=== PATIENT | female | born 1970 | race Caucasian/White ===

== ENCOUNTER 2022-03-05 13:33 | Inpatient (IN) | payer MEDICAID ==
[~2022-03-05] VITALS: Ht 157.5 cm; Wt 66.7 kg
[2022-03-05] MEDS ORDERED: EPINEPHrine 1:1,000 [1 MG/ML] VIAL IM ONE (13:45)
[2022-03-05] MEDS ORDERED: DEXAMETHASONE SOD PHOS 4 MG/ML 5 ML VIAL IVP ONE (13:45)
[2022-03-05] MEDS ORDERED: ALBUTEROL SULFATE 2.5 MG/0.5 ML NEB SOLUTION NEB ONE (14:00)
[2022-03-05] MEDS ORDERED: CITA-107 PO (14:09)
[2022-03-05] MEDS ORDERED: ALBU8HFA IH (14:09)
[2022-03-05] MEDS ORDERED: SIMV10TA97 PO (14:09)
[2022-03-05] MEDS ORDERED: CYCL-397 PO (14:09)
[2022-03-05] MEDS ORDERED: LORA10TA7 PO (14:09)
[2022-03-05] MEDS ORDERED: CHOL400C8 PO (14:09)
[2022-03-05] MEDS ORDERED: CLON-592 PO (14:09)
[2022-03-05] MEDS ORDERED: FAMOTIDINE 10 MG/ML 2 ML VIAL IVP ONE (14:15)
[2022-03-05 14:21] LABS: BASOPHILS % (AUTO) 0.4 % (0.0-2.0); HEMATOCRIT 48.2 % (36-46); HEMOGLOBIN 15.9 g/dL (12.0-16.0); LYMPHOCYTES # (AUTO) 7.2 K/uL (1.0-4.8); LYMPHOCYTES % (AUTO) 32.3 % (22.0-44.0); MEAN CORPUSCULAR HGB CONC 32.9 G/dL (31.0-37.0); MEAN CORPUSCULAR VOLUME 82 fL (80-100); MONOCYTES # (AUTO) 1.8 K/uL (0.1-1.0); MONOCYTES % (AUTO) 8.1 % (2.0-9.0); NEUTROPHILS % (AUTO) 58.2 % (40.0-70.0); PLATELET COUNT (AUTO) 304 K/uL (150-450); RED BLOOD CELL COUNT(AUTO) 5.88 MIL/uL (4.00-5.20); RED CELL DISTRIBUTION WIDTH 13.6 % (11.5-14.5)
[2022-03-05 14:38] LABS: PROTHROMBIN TIME 10.3 SEC (9.4-11.6)
[2022-03-05 14:51] LABS: ANION GAP 11 mmol/L (8-16); CALCIUM, TOTAL 11.5 mg/dL (8.8-10.5); CARBON DIOXIDE 28 mmol/L (22-29); CHLORIDE 101 mmol/L (98-107); CREATININE 0.65 mg/dL (0.60-1.30); GLUCOSE,RANDOM 155 mg/dL (70-110); POTASSIUM 3.3 mmol/L (3.5-5.1); SODIUM SERUM 140 mmol/L (136-145); UREA NITROGEN, BLOOD 8 mg/dL (7-18)
[2022-03-05 14:52] LABS: GLOMERULAR FILTR. RATE CALC > 60 mL/min (>60)
[2022-03-05 14:58] LABS: ALANINE AMINOTRANSFERASE 106 U/L (12-78); ALBUMIN 4.3 g/dL (3.4-5.0); ALKALINE PHOSPHATASE 115 U/L (46-116); ASPARTATE AMINOTRANSFERASE 61 U/L (15-37); BILIRUBIN,TOTAL 0.6 mg/dL (0.1-1.0); CREATINE KINASE, TOTAL ONLY 33 U/L (26-192); TOTAL PROTEIN, SERUM 7.7 g/dL (6.4-8.2)
[2022-03-05 15:05] LABS: B-TYPE NATRIURETIC PEPTIDE < 5 pg/mL (0-100)
[2022-03-05] MEDS ORDERED: ONDANSETRON HCL 4 MG/2 ML VIAL IVP PRN ×2 (16:00→16:15)
[2022-03-05] MEDS ORDERED: ACETAMINOPHEN 325 MG TABLET PO PRN ×2 (16:00→16:15)
[2022-03-05] MEDS ORDERED: 0.9% SODIUM CHLORIDE 10 ML SYRINGE IVP PRN (16:00)
[2022-03-05] MEDS ORDERED: MORPHINE SULFATE 2 MG/ML SYRINGE IVP PRN (16:15)
[2022-03-05] MEDS ORDERED: BISACODYL 10 MG RECTAL RECTAL SUPPOSITORY PR PRN (16:15)
[2022-03-05] MEDS ORDERED: MAGNESIUM HYDROXIDE SUSPENSION 30 ML UDCUP PO PRN (16:15)
[2022-03-05] MEDS ORDERED: ZOLPIDEM TARTRATE 5 MG TABLET PO PRN (16:15)
[2022-03-05] MEDS ORDERED: HYDROCODONE/ACETAMINOPHEN 5-325 MG TABLET PO PRN (16:15)
[2022-03-05 16:55] LABS: COVID AG,FIA SOURCE NASOPHARYNGEAL
[2022-03-05] MEDS ORDERED: BUTA1CAP49 PO (17:07)
[2022-03-05 21:13] VITALS: BP 128/86
[2022-03-05] MEDS: DiphenhydrAMINE HCL 50 MG/ML VIAL IVP SCH (21:36)
[2022-03-05] MEDS: DOCUSATE SODIUM 100 MG CAPSULE PO SCH (21:36)
[2022-03-05] MEDS: FAMOTIDINE 10 MG/ML 2 ML VIAL IVP SCH (23:39)
[2022-03-05] MEDS: MethylPREDNISolone SOD SUCC 125 MG/2 ML VIAL IVP SCH (23:39)
[2022-03-05] MEDS: HEPARIN SODIUM,PORCINE 5,000 UNITS/ML VIAL SQ SCH (23:40)
[2022-03-05 23:47] VITALS: BP 119/76
[2022-03-06 04:07] VITALS: BP 122/74
[2022-03-06 06:22] LABS: ALBUMIN 3.8 g/dL (3.4-5.0); ALKALINE PHOSPHATASE 98 U/L (46-116); ANION GAP 17 mmol/L (8-16); ASPARTATE AMINOTRANSFERASE 37 U/L (15-37); BILIRUBIN,TOTAL 0.6 mg/dL (0.1-1.0); CALCIUM, TOTAL 11.3 mg/dL (8.8-10.5); CARBON DIOXIDE 25 mmol/L (22-29); CHLORIDE 97 mmol/L (98-107); GLUCOSE,RANDOM 284 mg/dL (70-110); POTASSIUM 3.8 mmol/L (3.5-5.1); SODIUM SERUM 139 mmol/L (136-145); TOTAL PROTEIN, SERUM 7.4 g/dL (6.4-8.2); UREA NITROGEN, BLOOD 11 mg/dL (7-18)
[2022-03-06 06:34] LABS: ALANINE AMINOTRANSFERASE 91 U/L (12-78)
[2022-03-06 06:46] LABS: GLOMERULAR FILTR. RATE CALC > 60 mL/min (>60)
[2022-03-06 07:44] VITALS: BP 111/73
[2022-03-06] MEDS: PANTOPRAZOLE SODIUM 40 MG DR TABLET PO SCH (08:24)
[2022-03-06] MEDS: HEPARIN SODIUM,PORCINE 5,000 UNITS/ML VIAL SQ SCH ×2 (08:24→15:27)
[2022-03-06] MEDS: DiphenhydrAMINE HCL 50 MG/ML VIAL IVP SCH ×2 (08:25→20:31)
[2022-03-06] MEDS: FAMOTIDINE 10 MG/ML 2 ML VIAL IVP SCH ×2 (08:26→20:30)
[2022-03-06] MEDS: MethylPREDNISolone SOD SUCC 125 MG/2 ML VIAL IVP SCH ×2 (08:27→15:28)
[2022-03-06] MEDS: DOCUSATE SODIUM 100 MG CAPSULE PO SCH ×2 (08:28→20:29)
[2022-03-06 08:56] LABS: BASOPHILS % (AUTO) 0.2 % (0.0-2.0); EOSINOPHILS % (AUTO) 0 % (1.0-6.0); HEMATOCRIT 43.9 % (36-46); HEMOGLOBIN 14.8 g/dL (12.0-16.0); LYMPHOCYTES # (AUTO) 1.4 K/uL (1.0-4.8); LYMPHOCYTES % (AUTO) 15.4 % (22.0-44.0); MEAN CORPUSCULAR HEMOGLOBIN 27.8 pg (26.0-34.0); MEAN CORPUSCULAR HGB CONC 33.8 G/dL (31.0-37.0); MEAN CORPUSCULAR VOLUME 82 fL (80-100); MONOCYTES # (AUTO) 0.1 K/uL (0.1-1.0); NEUTROPHILS # (AUTO) 7.7 K/uL (1.8-7.7); NEUTROPHILS % (AUTO) 83.4 % (40.0-70.0); PLATELET COUNT (AUTO) 254 K/uL (150-450); RED BLOOD CELL COUNT(AUTO) 5.35 MIL/uL (4.00-5.20); RED CELL DISTRIBUTION WIDTH 13.9 % (11.5-14.5)
[2022-03-06] MEDS ORDERED: SODIUM CHLORIDE 0.9% 100 ML ONE (11:00)
[2022-03-06 11:05] VITALS: BP 119/78
[2022-03-06 15:33] VITALS: BP 123/89
[2022-03-06 20:05] VITALS: BP 130/73
[2022-03-07] MEDS: MethylPREDNISolone SOD SUCC 125 MG/2 ML VIAL IVP SCH ×2 (00:25→08:46)
[2022-03-07 00:26] VITALS: BP 118/74
[2022-03-07] MEDS: HEPARIN SODIUM,PORCINE 5,000 UNITS/ML VIAL SQ SCH ×3 (00:26→18:05)
[2022-03-07 04:47] VITALS: BP 121/68
[2022-03-07 05:38] LABS: EOSINOPHILS % (AUTO) 0 % (1.0-6.0); HEMATOCRIT 41.4 % (36-46); HEMOGLOBIN 13.9 g/dL (12.0-16.0); LYMPHOCYTES # (AUTO) 1.1 K/uL (1.0-4.8); LYMPHOCYTES % (AUTO) 7.8 % (22.0-44.0); MEAN CORPUSCULAR HEMOGLOBIN 27.5 pg (26.0-34.0); MEAN CORPUSCULAR HGB CONC 33.7 G/dL (31.0-37.0); MEAN CORPUSCULAR VOLUME 82 fL (80-100); MONOCYTES # (AUTO) 0.4 K/uL (0.1-1.0); MONOCYTES % (AUTO) 2.4 % (2.0-9.0); NEUTROPHILS # (AUTO) 13.2 K/uL (1.8-7.7); PLATELET COUNT (AUTO) 247 K/uL (150-450); RED BLOOD CELL COUNT(AUTO) 5.07 MIL/uL (4.00-5.20); RED CELL DISTRIBUTION WIDTH 14.1 % (11.5-14.5)
[2022-03-07 05:46] LABS: ANION GAP 8 mmol/L (8-16); CARBON DIOXIDE 25 mmol/L (22-29); CHLORIDE 102 mmol/L (98-107); CREATININE 0.72 mg/dL (0.60-1.30); GLUCOSE,RANDOM 395 mg/dL (70-110); POTASSIUM 4.3 mmol/L (3.5-5.1); SODIUM SERUM 135 mmol/L (136-145); UREA NITROGEN, BLOOD 17 mg/dL (7-18)
[2022-03-07 05:57] LABS: GLOMERULAR FILTR. RATE CALC > 60 mL/min (>60)
[2022-03-07 06:08] LABS: NEUTROPHILS % (AUTO) 89.8 % (40.0-70.0)
[2022-03-07 07:20] VITALS: BP 128/78
[2022-03-07] MEDS: PANTOPRAZOLE SODIUM 40 MG DR TABLET PO SCH (08:41)
[2022-03-07] MEDS: FAMOTIDINE 10 MG/ML 2 ML VIAL IVP SCH ×2 (08:42→21:07)
[2022-03-07] MEDS: DiphenhydrAMINE HCL 50 MG/ML VIAL IVP SCH ×2 (08:44→21:07)
[2022-03-07] MEDS: DOCUSATE SODIUM 100 MG CAPSULE PO SCH ×2 (08:52→21:00)
[2022-03-07 10:26] VITALS: BP 115/74
[2022-03-07] MEDS ORDERED: METF-446 PO (12:16)
[2022-03-07] MEDS ORDERED: BUDE180H IH (12:16)
[2022-03-07] MEDS ORDERED: ERGO500054 PO (12:16)
[2022-03-07] MEDS ORDERED: GLIP5TAB11 PO (12:16)
[2022-03-07] MEDS ORDERED: DORZ10DR13 OU (12:16)
[2022-03-07] MEDS ORDERED: BRIM15DR2 OU (12:16)
[2022-03-07] MEDS ORDERED: LATA2.5D14 OU (12:16)
[2022-03-07] MEDS ORDERED: HYDR-4584 PO (12:16)
[2022-03-07 15:10] VITALS: BP 149/83
[2022-03-07] MEDS: MethylPREDNISolone SOD SUCC 40 MG/ML VIAL IVP SCH (18:05)
[2022-03-07] MEDS ORDERED: PRED-549 PO (19:23)
[2022-03-07] MEDS ORDERED: PRED-729 PO (19:23)
[2022-03-07] MEDS ORDERED: PRED-554 PO (19:23)
[2022-03-07 19:48] VITALS: BP 140/93
[2022-03-08 00:02] VITALS: BP 114/74
[2022-03-08] MEDS: MethylPREDNISolone SOD SUCC 40 MG/ML VIAL IVP SCH ×2 (00:18→08:00)
[2022-03-08] MEDS: HEPARIN SODIUM,PORCINE 5,000 UNITS/ML VIAL SQ SCH ×2 (00:18→08:00)
[2022-03-08 04:24] VITALS: BP 123/74
== END 2022-03-08 07:40 | disposition home or self-care (01) | DRG 811 ==
LOC: EMS 13:33 → 5N 18:38
PROVIDERS: ADMIT Internal Medicine; ATTEND Internal Medicine
DX: T78.01XA Anaphylactic reaction due to peanuts, initial encounter (principal); R65.10 Systemic inflammatory response syndrome (SIRS) of non-infectious origin without acute organ dysfunction; J45.909 Unspecified asthma, uncomplicated; E78.5 Hyperlipidemia, unspecified; Z20.822 Contact with and (suspected) exposure to COVID-19; E87.6 Hypokalemia; Z91.010 Allergy to peanuts; Y92.89 Other specified places as the place of occurrence of the external cause
CPT/HCPCS: 70360; 70490; 71045; 80048; 80053; 82550; 83880; 84484; 85025; 85610; 85730; 93005; 94640; 99291; J1200; J1644; J2920; J2930; J3490; J7050; 36415-L1; 36415-TC; J7613